=== PATIENT | female | born 2000 | race Caucasian/White ===

== ENCOUNTER → 2023-12-17 | Outpatient (CLI) | payer BC ==
[2023-12-17 11:28] LABS: Source, Urine Clean Catch
[2023-12-17 13:12] LABS: Appearance, Urine Hazy (Clear); Bilirubin, Urine Neg (Neg); Blood, Urine Neg (Neg); Color, Urine Yellow (P-Yellow); Glucose Qualitative, Urine Neg (Neg); Ketones, Urine Neg (Neg); Leukocyte Esterase, Urine Neg (Neg); Nitrite, Urine Neg (Neg); Protein, Urine Neg (Neg); Specific Gravity, Urine 1.015 (1.003-1.022); Urobilinogen, Urine NORM (Normal)
[2023-12-17 13:18] LABS: BASOPHILS ABSOLUTE AUTO 0.02 K/mm3 (0.00-0.23); BASOPHILS PERCENT AUTO 0 % (0-2); EOSINOPHILS ABSOLUTE AUTO 0.02 K/mm3 (0.00-0.68); EOSINOPHILS PERCENT AUTO 0 % (0-6); Hematocrit 38.2 % (33.0-51.0); Hemoglobin 13.4 g/dL (11.5-16.0); IMMATURE GRAN ABSOLUTE AUTO 0.01 K/mm3 (0.00-0.10); IMMATURE GRAN PERCENT AUTO 0 % (0-1); LYMPHOCYTES ABSOLUTE AUTO 1.65 K/mm3 (0.84-5.20); LYMPHOCYTES PERCENT AUTO 25 % (21-46); MONOCYTES ABSOLUTE AUTO 0.44 K/mm3 (0.16-1.47); MONOCYTES PERCENT AUTO 7 % (4-13); Mean Corpuscular HGB 30.6 pg (26.0-34.0); Mean Corpuscular HGB Conc 35.1 g/dL (31.5-36.5); Mean Corpuscular Volume 87 fL (80-100); Mean Platelet Volume 9.6 fL (9.1-12.4); NEUTROPHILS ABSOLUTE AUTO 4.36 K/mm3 (1.96-9.15); NEUTROPHILS PERCENT AUTO 67 % (41-73); Platelet Count 281 K/mm3 (150-400); RDW Coefficient Variation 11.9 % (11.7-14.2); RDW Standard Deviation 38.2 fL (35.1-46.3); Red Blood Cell Count 4.38 M/mm3 (3.80-5.20)
[2023-12-17 13:25] LABS: Amorphous Heavy (0-Heavy); Bacteria Few /hpf; Red Blood Cells, Urine 0-2 /hpf (0-2); Squamous Epithelial Cells Rare /hpf (Few); White Blood Cells, Urine 0-2 /hpf (0-5)
[2023-12-18 16:26] LABS: HEPATITIS B SURFACE ANTIGEN Negative (Negative)
[2023-12-18 17:07] LABS: HEPATITIS C AB CIA INTERP Negative (Negative); HEPATITIS C ANTIBODY CIA INDEX 0.04 IV
[2023-12-18 17:16] LABS: HIV 1,2 COMBO ANTIGEN/ANTIBODY Negative (Negative)
== END ==
LOC: LAB SHORT 11:24
PROVIDERS: Registered Nurse Community Health
DX: Z34.91 Encounter for supervision of normal pregnancy, unspecified, first trimester (principal)
CPT/HCPCS: 81001; 84443; 86803; 87086; 87340; 87389

== ENCOUNTER → 2024-04-23 | Outpatient (CLI) | payer BC, OTHER ==
[2024-04-23 17:27] LABS: Hematocrit 32.1 % (33.0-51.0); Hemoglobin 11.1 g/dL (11.5-16.0)
== END | disposition home or self-care (01) ==
LOC: LAB 17:02 → LAB SHORT 17:02
PROVIDERS: Registered Nurse Community Health
DX: Z34.93 Encounter for supervision of normal pregnancy, unspecified, third trimester (principal); Z3A.27 27 weeks gestation of pregnancy
CPT/HCPCS: 82950; 85014; 85018

== ENCOUNTER → 2024-06-24 | Outpatient (CLI) | payer BC, OTHER | END | disposition home or self-care (01) | LOC: LAB 16:23 → LAB SHORT 16:23 | DX: Z34.93 Encounter for supervision of normal pregnancy, unspecified, third trimester (principal) | CPT/HCPCS: 87081; 87150 ==

== ENCOUNTER 2024-07-24 19:16 | Inpatient (IN) | payer BC, OTHER ==
[~2024-07-24] VITALS: Ht 167.6 cm; Wt 77.2 kg
[2024-07-24 20:08] VITALS: BP 114/59
[2024-07-24] MEDS ORDERED: Carboprost Tromethamine 250 MCG/ML 1ML Amp IM PRN (20:20)
[2024-07-24] MEDS ORDERED: Lactated Ringer's 1,000 ML IV SCH (20:20)
[2024-07-24] MEDS ORDERED: Tranexamic Acid 100 ML IV SCH (20:20)
[2024-07-24] MEDS ORDERED: Misoprostol 25 MCG Tab VAG PRN (20:20)
[2024-07-24] MEDS ORDERED: Lactated Ringer's 1,000 ML IV PRN ×3 (20:20)
[2024-07-24] MEDS ORDERED: ePHEDrine Sulfate 50 MG/ML 1ML Injection XX PRN (20:20)
[2024-07-24] MEDS ORDERED: FentaNYL 2mcg/ml-Bup 0.1% Epd 250 ML EPI PRN (20:20)
[2024-07-24] MEDS ORDERED: Misoprostol 200 MCG Tab PR PRN (20:20)
[2024-07-24] MEDS ORDERED: Misoprostol 200 MCG Tab BC PRN (20:20)
[2024-07-24] MEDS ORDERED: Oxytocin 10 Unit / ML Vial IM PRN (20:20)
[2024-07-24] MEDS ORDERED: OXYTOCIN/RINGER'S LACTATE 500 ML IV PRN (20:20)
[2024-07-24] MEDS ORDERED: Methylergonovine Maleate 0.2MG / ML 1ML Amp IM PRN (20:20)
[2024-07-24] MEDS ORDERED: Ondansetron HCl 2 MG / ML 2ML Vial IV PRN (20:25)
[2024-07-24] MEDS ORDERED: Calcium Carbonate 500 MG Tab Chew PO PRN (20:25)
[2024-07-24] MEDS ORDERED: Acetaminophen 500 MG Tab PO PRN (20:25)
[2024-07-24] MEDS ORDERED: FentaNYL Citrate 50 MCG/ML 2 ML Injection IV PRN (20:30)
[2024-07-24 20:31] LABS: BASOPHILS ABSOLUTE AUTO 0.02 K/mm3 (0.00-0.23); BASOPHILS PERCENT AUTO 0 % (0-2); EOSINOPHILS ABSOLUTE AUTO 0.03 K/mm3 (0.00-0.68); EOSINOPHILS PERCENT AUTO 0 % (0-6); Hemoglobin 11.8 g/dL (11.5-16.0); IMMATURE GRAN ABSOLUTE AUTO 0.03 K/mm3 (0.00-0.10); IMMATURE GRAN PERCENT AUTO 0 % (0-1); LYMPHOCYTES ABSOLUTE AUTO 1.78 K/mm3 (0.84-5.20); LYMPHOCYTES PERCENT AUTO 20 % (21-46); MONOCYTES ABSOLUTE AUTO 0.89 K/mm3 (0.16-1.47); MONOCYTES PERCENT AUTO 10 % (4-13); Mean Corpuscular HGB 29.9 pg (26.0-34.0); Mean Corpuscular HGB Conc 34.7 g/dL (31.5-36.5); Mean Corpuscular Volume 86 fL (80-100); Mean Platelet Volume 9.5 fL (9.1-12.4); NEUTROPHILS ABSOLUTE AUTO 6.15 K/mm3 (1.96-9.15); NEUTROPHILS PERCENT AUTO 69 % (41-73); Platelet Count 234 K/mm3 (150-400); RDW Coefficient Variation 13.4 % (11.7-14.2); Red Blood Cell Count 3.94 M/mm3 (3.80-5.20)
[2024-07-24] MEDS ORDERED: Lactated Ringer's 1,000 ML IV ONE (20:45)
[2024-07-24] MEDS ORDERED: Zolpidem Tartrate 5 MG Tab PO PRN (23:05)
[2024-07-24] MEDS ORDERED: PRENATAL TABLE1 EAC2 PO (23:07)
[2024-07-25] VITALS (31 sets, daily range): BP systolic 107–131; BP diastolic 58–81
--- NOTE | 2024-07-25 01:15 | NUR ---
EFW IS 7 POUNDS
[2024-07-25] MEDS ORDERED: Naloxone HCl 0.4MG / ML 1ML Vial IV PRN (20:35)
[2024-07-25] MEDS ORDERED: Ondansetron HCl 2 MG / ML 2ML Vial IV PRN (20:35)
[2024-07-25] MEDS ORDERED: DiphenhydrAMINE HCl 50 MG/ML 1ML Vial IV PRN (20:35)
[2024-07-25] MEDS ORDERED: ePHEDrine Sulfate 50 MG/ML 1ML Injection IV PRN (20:35)
[2024-07-26] VITALS (16 sets, daily range): BP systolic 95–132; BP diastolic 54–74
[2024-07-26] MEDS ORDERED: Lanolin Cream TOP PRN (00:40)
[2024-07-26] MEDS ORDERED: OxyCODONE 5 mg/Acetamin 325 mg TABLET PO PRN (00:40)
[2024-07-26] MEDS ORDERED: Methylergonovine Maleate 0.2MG / ML 1ML Amp IM PRN (00:40)
[2024-07-26] MEDS ORDERED: Lactated Ringer's 1,000 ML IV SCH (00:40)
[2024-07-26] MEDS ORDERED: Measles/Mumps/Rubella Vaccine 0.5 ML Vial SC SCH (00:40)
[2024-07-26] MEDS ORDERED: Ketorolac Tromethamine 30mg Vial IV PRN (00:45)
[2024-07-26] MEDS ORDERED: Misoprostol 200 MCG Tab PR PRN (00:45)
[2024-07-26] MEDS ORDERED: Oxytocin 10 Unit / ML Vial IM ONE (00:45)
[2024-07-26] MEDS ORDERED: Benzocaine Topical Anesthetic Spray 60GM TOP PRN (00:45)
[2024-07-26] MEDS ORDERED: Ibuprofen 400 MG Tab PO PRN (00:45)
[2024-07-26] MEDS ORDERED: OXYTOCIN/RINGER'S LACTATE 500 ML IV SCH (00:45)
[2024-07-26] MEDS ORDERED: Acetaminophen 325 MG TABLET PO PRN (00:45)
[2024-07-26] MEDS ORDERED: Diphth,Pertuss(Acell),Tet Vac 0.5 ML VIAL IM ONE (00:50)
[2024-07-26] MEDS ORDERED: Witch Hazel/Glycerin PADS TOP PRN (00:50)
[2024-07-26] MEDS ORDERED: Docusate Sodium 100 MG Cap PO PRN (00:50)
[2024-07-26] MEDS ORDERED: Hydrocortisone/Pramoxine Rectal Foam 10 GM PR PRN (00:50)
[2024-07-26] MEDS ORDERED: FLU VACC TS2024-25(6MOS UP)/PF 45 MCG/0.5 ML SYRINGE IM SCH (00:50)
[2024-07-26 06:56] LABS: Hematocrit 30.1 % (33.0-51.0); Hemoglobin 10.4 g/dL (11.5-16.0); Mean Corpuscular HGB 30.2 pg (26.0-34.0); Mean Corpuscular HGB Conc 34.6 g/dL (31.5-36.5); Mean Corpuscular Volume 88 fL (80-100); Mean Platelet Volume 9.3 fL (9.1-12.4); Platelet Count 196 K/mm3 (150-400); RDW Coefficient Variation 13.6 % (11.7-14.2); RDW Standard Deviation 42.9 fL (35.1-46.3); Red Blood Cell Count 3.44 M/mm3 (3.80-5.20)
[2024-07-26] MEDS ORDERED: Prenatal Vit/FE Fumarate/FA 1 Tab PO SCH (09:00)
--- NOTE | 2024-07-26 18:38 | NUR ---
agree with [facility] family law attorney [place] [facility]
[2024-07-27 03:10] VITALS: BP 123/81
[2024-07-27 07:55] VITALS: BP 125/73
== END 2024-07-27 10:26 | disposition home or self-care (01) | DRG 807 ==
LOC: OBS 19:16 → BC 19:19 → OBS 19:29 → BC 19:29 → OBS 07-25 23:39 → BC 07-25 23:39
PROVIDERS: ADMIT Registered Nurse Community Health
PROC: 10E0XZZ Delivery of Products of Conception, External Approach (ICD-10-PCS; principal; 2024-07-25)
PROC: 0KQM0ZZ Repair Perineum Muscle, Open Approach (ICD-10-PCS; 2024-07-25)
PROC: 10907ZC Drainage of Amniotic Fluid, Therapeutic from Products of Conception, Via Natural or Artificial Opening (ICD-10-PCS; 2024-07-25)
PROC: 3E0DXGC Introduction of Other Therapeutic Substance into Mouth and Pharynx, External Approach (ICD-10-PCS; 2024-07-25)
PROC: 3E033VJ Introduction of Other Hormone into Peripheral Vein, Percutaneous Approach (ICD-10-PCS; 2024-07-25)
DX: O48.0 Post-term pregnancy (principal); Z37.0 Single live birth; Z3A.41 41 weeks gestation of pregnancy; O70.1 Second degree perineal laceration during delivery; O69.81X0 Labor and delivery complicated by cord around neck, without compression, not applicable or unspecified; Z88.8 Allergy status to other drugs, medicaments and biological substances; O77.0 Labor and delivery complicated by meconium in amniotic fluid
CPT/HCPCS: 36415; 51702; 85025; 85027; 86850; 86900; 86901; A9270; J1885; J2405; J2590; J3010; J7120

== ENCOUNTER → 2024-11-06 | Outpatient (CLI) | payer BC, OTHER ==
[~2024-11-06] MED LIST: PRENATAL TABLE1 EAC2 PO
== END | disposition home or self-care (01) ==
LOC: LAB SHORT 11:15 → LAB 11:15
DX: N89.8 Other specified noninflammatory disorders of vagina (principal)
CPT/HCPCS: 87070; 87205

== ENCOUNTER → 2025-01-07 | Outpatient (CLI) | payer BC, OTHER | LOC: LAB SHORT 18:24 → LAB 18:24 | DX: N89.8 Other specified noninflammatory disorders of vagina (principal) | CPT/HCPCS: 87070; 87205 ==